=== PATIENT | male | born 1960 | race Caucasian/White ===

== ENCOUNTER 2025-05-07 12:32 | Outpatient (AMB) | payer OTHER, SELFPAY ==
[2025-05-07 12:49] VITALS: BMI 33.2
--- NOTE | 2025-05-07 12:49 | A.PHYSOV ---
Vital Signs 05/07/25 12:49 Height 5 ft 7 in Weight 212 lb BMI 33.2 Intake Visit Reasons: EMG followup Intake Note: Patient is here for his EMG review. Associate Material Handler Required: No Allergies No Known Allergies Allergy (Verified 05/07/25 12:50) HPI Comments Details: History of Present Illness The patient is a 64 year old male presenting for follow-up of moderate bilateral carpal tunnel syndrome and new onset low back pain. He has been retired for two weeks and reports that his hands feel better with less use, though numbness persists in the first four fingers of his right hand. A prior carpal tunnel injection provided short-term pain relief but did not resolve the numbness. He also notes that his right wrist has been locking up, which is very painful. His left thumb, previously treated with a cortisone injection for arthritis by another provider, is not currently bothering him. For the past two days, the patient has experienced low back pain, prompting him to remain mostly horizontal on a heating pad. The pain is located in the center of his back and radiates to the hips. His history is notable for a fall four years ago that resulted in a large gluteal hematoma, which took months to resolve and left him with altered sensation in his left buttock. 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 Pain Description - Hands: The patient reports constant numbness in the first four fingers of his right hand. - Wrist: The patient's right wrist intermittantly locks, causing severe pain. - Back: The patient describes central low back pain that radiates to both hips, accompanied by a feeling of stiffness. - Exacerbating factors: Back pain is worse when upright and walking. - Relieving factors: Hand discomfort is alleviated by rest since [facility]. - Back pain is relieved by lying down. Results - Tests and Diagnostics: A recent test confirmed moderate bilateral carpal tunnel syndrome. - Imaging: A past CAT scan performed for a kidney stone incidentally found a hemangioma in the back. - He previously had an x-ray of his left hand. [facility] Medical History (Updated 05/07/25 @ 13:56 by SAMUEL Witt) Kidney stones Surgical History H/O: knee surgery History of cholecystectomy H/O shoulder surgery Social History (Updated 05/07/25 @ 12:53 by Erica Elliott MA) Alcohol intake: current Alcohol intake frequency: holidays/special occasions only Patient Tobacco Use Status: Never used Tobacco Review of Systems Narrative Review of Systems - Musculoskeletal: Reports acute low back pain with stiffness and radiation to hips. - Reports right wrist locking with associated pain. - Reports hand discomfort is improved overall since retiring. - Denies current left thumb pain. - Neurological: Reports constant numbness in the first four fingers of the right hand. - Reports a history of altered sensation in the left buttock. - Denies pain radiating into his legs. Physical Exam Exam Exam: Physical Exam -cervical spine range of motion slightly limited at end range throughout. -full range of motion bilateral upper extremities. Equal grape grower strength bilaterally. No thenar atrophy. -positive Tinel test bilaterally. - Back: Palpation of the lower back reveals bilateral muscle spasm. - Musculoskeletal: Lumbar spine range of motion demonstrates discomfort with extension and stiffness with flexion, without radicular symptoms into the legs. - Neurological: Lower extremity sensation is intact and equal bilaterally. - Lower extremity motor strength is 5/5 with thigh flexion and leg extension. Vital Signs: BMI result Body Mass Index 33.2 Assessment & Plan Assessment & Plan (1) Carpal tunnel syndrome: Code(s): G56.00 - Carpal tunnel syndrome, unspecified upper limb Category: Medical Qualifiers: Laterality: bilateral Qualified Code(s): G56.03 - Carpal tunnel syndrome, bilateral upper limbs (2) Cervicalgia: Code(s): M54.2 - Cervicalgia Category: Medical (3) Lumbar radiculopathy: Code(s): M54.16 - Radiculopathy, lumbar region Category: Medical Plan Pain Management - Analgesia: For back pain, the patient uses pain patches and a heating pad. - He has a prescription for diclofenac but was advised he could switch to ibuprofen if it is more effective. - A prior carpal tunnel injection helped his pain but not his numbness. - Activities of Daily Living: Hand discomfort has improved since retiring from work two weeks ago. - His acute back pain has kept him mostly horizontal for the past two days and is worse with walking. Plan Patient was informed and verbally consented to the use of an ambient scribe for clinic note documentation during this visit. 1. Bilateral Carpal Tunnel Syndrome The patient has moderate bilateral carpal tunnel syndrome, with persistent numbness in his right hand despite some improvement in overall discomfort since mcfp. A prior injection provided only temporary pain relief without affecting the numbness, raising concern for potential permanent nerve damage. A referral will be placed for a consultation with Dr. Sy, a hand surgeon, to discuss further management options, including potential surgery. 2. Acute Low Back Pain The patient presents with acute onset low back pain from the past two days, which examination suggests is musculoskeletal in origin, likely a muscle spasm. Management will be conservative, allowing time for spontaneous improvement. He will continue using a heating pad and pain patches. He can stop taking diclofenac and use ibuprofen if it provides better relief. If the pain lingers or does not resolve, further evaluation with an X-ray will be considered. Discussion Notes I confirmed with the patient that his test results show moderate carpal tunnel syndrome in both hands. We discussed that while his pain has improved with rest and prior injections, the persistent numbness in his right hand is concerning and could lead to permanent nerve damage if left untreated. The patient agreed to a surgical consultation, and I will place a referral to Dr. Sy, a hand specialist he has seen before. Regarding his new low back pain, my examination suggests it is likely a muscle spasm. I advised a conservative approach, recommending he give it time, continue with the heating pad and pain patches, and use ibuprofen if needed. I informed him that if the pain does not resolve or lingers, we should then proceed with an x-ray for further evaluation. Patient Instructions - I will send a referral to Dr. Sy, the hand specialist, for a consultation regarding your carpal tunnel syndrome. - Please schedule an appointment with him to discuss your options. - For your back pain, continue to give it time to improve. - You may continue using your heating pad and pain patches. - You can stop taking the prescription anti-inflammatory (diclofenac) and take [id number] ibuprofen if that works better for your pain. - If your back pain does not get better or worsens, please contact the office for a follow-up visit. Orders: Referrals Orthopedics Referral G56.03 - Carpal tunnel syndrome, bilateral upper limbs Coding Level of Care Code Est Pt Level 4 (54401) Diagnoses Bilateral carpal tunnel syndrome G56.03 Laterality: bilateral Cervicalgia M54.2 Lumbar radiculopathy M54.16 Time Spent (min) 30 Comment 30 minutes reviewing the medical record and imaging, seeing the patient and documenting.
--- OUTSIDE RECORDS SUMMARY | 2025-05-07 14:22 | XMS_ITS | Clinical Summary ---
Author Organization [address] [facility] Address [address] [place] [address] Phone Care Team Providers Care Airborne Operations Manager Name Role Phone Geri Camarillo NP Primary Care Provider [phone] Allergies No known active allergies Medications cetirizine (ZyrTEC) 10 mg tablet Take 1 tablet (10 mg total) by mouth 1 (one) time each day. Active tamsulosin (FLOMAX) 0.4 mg 24 hr capsule Take 2 capsules (0.8 mg total) by mouth 1 (one) time each day. 03/05/2023 Active calcium carbonate-vitam in D3 1,000 mg-20 mcg (800 unit) tablet Take 1 tablet by mouth 1 (one) time each day. Active atorvastatin (LIPITOR) 20 mg tablet TAKE 1 TABLET BY MOUTH DAILY 90 tablet 1 11/25/2024 Active gabapentin (NEURONTIN) 300 mg capsule Take 1 capsule (300 mg total) by mouth 3 (three) times a day. 270 capsule 1 12/11/2024 Active pantoprazole (PROTONIX) 40 mg EC tablet Take 1 tablet (40 mg total) by mouth 1 (one) time each day. 90 tablet 12/11/2024 Active sertraline (ZOLOFT) 50 mg tablet TAKE 1 TABLET(50 MG) BY MOUTH 1 TIME EACH DAY 90 tablet 1 02/05/2025 Active amLODIPine (NORVASC) 5 mg tablet TAKE 1 TABLET(5 MG) BY MOUTH TWICE DAILY 180 tablet 1 02/05/2025 Active meloxicam (MOBIC) 15 mg tablet TAKE 1 TABLET(15 MG) BY MOUTH 1 TIME EACH DAY 30 tablet 2 03/11/2025 Active Active Problems Problem Noted Date Diagnosed Date Cervical spondylosis with radiculopathy 03/20/20 Overview (01/17/2024): Last Assessment & Plan: Mr. Lara describes many years of neck pain, periscapular symptoms, shoulder pain into both arms. He had recent physical therapy but this did not really include cervical traction. His MRI of the cervical spine from [facility] on March 07 revealed degenerative changes most significant at C5-6 and C6-7. His upper extremity symptoms do not perfectly match the dermatomal patterns suggested by his MRI, but there are quite a few symptoms that are consistent with the MRI findings. We talked about obtaining an EMG and nerve conduction study to better cross reference his symptoms, but at this point I think we are going to try a Medrol Dosepak and physical therapy with cervical traction. We talked about acupuncture as another reasonable conservative modality. He knows not to take any NSAIDs while he is on the steroids but that he can start them when he finishes the steroids. He is on gabapentin and we discussed side effects and dose effect. Regarding his right shoulder symptoms, I encouraged him to speak to his primary care provider about getting a referral to orthopedics. He does seem to have significant right shoulder pain whenever he tries to reach behind his back from above or below. He will return to us in about 6 weeks for repeat evaluation or sooner if things are getting worse. Benign prostatic hyperplasia without lower urinary tract symptoms 08/22/2022 Dysthymia 08/22/2022 Mixed hyperlipidemia 08/22/2022 Primary hypertension 08/22/2022 Encounters Date Type Department Care Team Description 03/03/2025 6:43 PM EDT - 03/03/2025 11:59 PM EDT Hospital Encounter [facility] MRI [address] [place] [address] Radiculopathy, cervical region Discharge Disposition: Home or Self Care from Last 3 Months Immunizations Immunization Administration Dates Next Due Influenza Quadravalent, MDCK , 0.5ml, preservative free (Flucelvax) 6mo and older 03/05/2023 Influenza trivalent, MDCK, 0 .5mL, preservative free (Flucelvax) 6mo and older 05/29/2024 Influenza trivalent, with pr eservative (Fluzone; Afluria) 6mo and older 04/29/2022 Tdap Tetanus diptheria acell ular pertussis (Boostrix; Adacel) 7yo and older 12/18/2020 Surgical History Surgery Date Site/Laterality Comments CHOLECYSTECTOMY PROCEDURE: HISTORICAL CHOLECYSTECTOMY KNEE SURGERY Left PROCEDURE: HISTORICAL KNEE SURGERY LITHOTRIPSY 07/14/2023 PROCEDURE: HISTORICAL LITHOTRIPSY SHOULDER SURGERY 07/22/2023 Right PROCEDURE: HISTORICAL SHOULDER SURGERY Medical History Medical History Date Comments Allergic rhinitis due to pollen DX:Allergic rhinitis due to pollen Back ache DX:Back ache GERD (gastroesophageal reflux disease) DX:GERD (gastroesophageal reflux disease) PUD (peptic ulcer disease) DX:PU D (peptic ulcer disease) Macrocytosis DX:Macrocytosis Renal stone DX:Renal stone Family History Medical History Relation Name Comments Hypertension Brother Diabetes Maternal Grandfather Alzheimer's disease Maternal Grandmother Alzheimer's disease Mother Hypertension Mother Stroke Mother Relation Name Status Comments Brother Maternal Grandfather Maternal Grandmother Mother Social History Tobacco Use Types Packs/Day Years Used Date Smoking Tobacco: Former Cigarettes Smokeless Tobacco: Never Tobacco Cessation:Counseling Given: Not Answered Alcohol Use Standard Drinks/Week Comments Not Currently 0 (1 standard drink = 0.6 oz pur e alcohol) Sex and Gender Information Value Date Recorded Sex Assigned at Not on file Legal Sex Male 2:54 AM EST Gender Identity Not on file Sexual Orientation Not on file Last Filed Vital Signs Vital Sign Reading Time Taken Comments Blood Pressure 129/75 12/11/2024 3:39 PM EDT Pulse 77 12/11/2024 3:39 PM EDT Temperature 36.7 C (98.1 F) 07/03/2024 9:02 AM EST Respiratory Rate - - Oxygen Saturation 97% 07/03/2024 9:02 AM EST Inhaled Oxygen Concentration - - Weight 94.8 kg (209 lb) 12/11/2024 3:39 PM EDT Height 170.2 cm (5' 7 ) 12/11/2024 3:39 PM EDT Body Mass Index 32.73 12/11/2024 3:39 PM EDT Plan of Treatment Upcoming Encounters Date Type Department Care Team (Late st Contact Info) Description 05/31/2025 9:00 AM EST Office Visit Internal Medicine - [facility] [address] [address] [facility] [place] [phone] Geri Camarillo, RONNIE [address] [id number] Health Maintenance Due Date Last Done Comments Pneumococcal Vaccine: 50+ Years (1 of 1 - PCV) 09/14/2011 Zoster Vaccines (1 of 2) 09/14/2011 Depression Screening 05/20/2024 Influenza Vaccine (#1) 2025 , 03/05/2023, 04/29/2022, Additional history exists Social Influencers of Health Screening 05/29/2025 05/29/2024 Hypertension/CHF/CAD Annual BMP Blood Test 12/11/2025 12/11/2024, 05/29/2024, 05/14/2023 Cholesterol Screening (Lipid Panel) 12/11/2029 12/11/2024, 05/29/2024, 09/25/2023, Additional history exists DTaP,Tdap,and Td Vaccines (2 - Td or Tdap) 12/18/2030 12/18/2020 Colorectal Cancer Screening: Colonoscopy 05/17/2032 05/17/2022 RSV Immunization Adult Patients (1 - 1-dose 75+ series) 2036 COVID-19 Vaccine Discontinued 06/03/2021, 08/20/2020 Hepatitis C Screening Completed 08/22/2022 HIB Vaccines Aged Out No longer eligi ble based on patient's age to complete this topic HIV Screening Discontinued HPV Vaccines Aged Out No longer eligi ble based on patient's age to complete this topic Hepatitis A Vaccines Aged Out No long er eligible based on patient's age to complete this topic Hepatitis B Vaccines Aged Out No long er eligible based on patient's age to complete this topic IPV Vaccines Aged Out No longer eligi ble based on patient's age to complete this topic MMR Vaccines Aged Out No longer eligi ble based on patient's age to complete this topic Meningococcal ACWY Vaccine Aged Out N o longer eligible based on patient's age to complete this topic Meningococcal B Vaccine Aged Out No l onger eligible based on patient's age to complete this topic RSV Immunization Patients Under 20 months Aged Out No longer eligible based on patient's age to complete this topic Varicella Vaccines Aged Out No longer eligible based on patient's age to complete this topic Procedures Procedure Name Priority Date/Time Associated Diagnosis Comments MR CERVICAL SPINE WO CONTRAST Routine 03/03/2025 7:34 PM EDT Radiculopathy, cervical region BASIC METABOLIC PANEL Routine 12/11/2024 4:01 PM EDT Primary hypertension LIPID PANEL WITH REFLEX TO DIRECT LDL Routine 12/11/2024 4:01 PM EDT Mixed hyperlipidemia HEPATITIS C SCREENING Routine 08/22/2022 COLONOSCOPY Routine 05/17/2022 from Last 3 Months or Most Recently Relevant to Health Maintenance Results * MR Cervical Spine wo Contrast (03/03/2025 7:34 PM EDT) Anatomical Region Laterality Modality C-spine, Spine Magnetic Resonan ce 03/09/2025 2:33 PM EDT Impressions 03/09/2025 2:42 PM EDT Degenerative changes throughout the cervical spine, most pronounced at C5-6 and C6-7. No high-grade spinal canal stenosis, mass effect upon the cord, or cord signal abnormality. Foraminal stenoses most pronounced on the right at C5-6 as well as on the left at C6-7 and C7-T1. Advanced C7-T1 facet arthritis bilaterally. -------- FINAL REPORT -------- Dictated By: SUZETTE CARPENTER Dictated Date: 03/09/2025 14:33 ET Assigned Physician: SUZETTE CARPENTER Reviewed and Electronically Signed By: SUZETTE CARPENTER Signed Date: 03/09/2025 14:42 ET Workstation ID: [id number] Transcribed By: Self Edit Transcribed Date: 03/09/2025 14:33 ET Narrative 03/09/2025 2:42 PM EDT PROCEDURE: Cervical spine MRI INDICATION: Radiculopathy TECHNIQUE: Multiplanar, multisequence MRI of the Cervical spine Without contrast. COMPARISON: 10/06/2012 MRI FINDINGS: Straightening of the normal upper cervical lordosis with minimal anterolisthesis at C7-T1 related to degenerative facet arthropathy. No fracture or suspicious marrow replacing lesion. Degenerative loss of normal disc height and signal throughout the cervical spine, most pronounced at C5-6 and C6-7, with associated degenerative endplate spurring. Advanced cervical facet arthritis at C7-T1 bilaterally. Cervical cord is normal in signal and morphology. No epidural collection or mass is seen within the spinal canal. Paraspinal muscles are normal. Foramen magnum is normal. Findings by level: C2-C3: No focal disc protrusion, foraminal stenosis, or spinal canal stenosis. C3-C4: No focal disc protrusion, foraminal stenosis, or spinal canal stenosis. C4-C5: Left uncovertebral spur resulting in mild left and no right foraminal stenosis. No spinal canal stenosis. C5-C6: Posterior disc osteophyte complex with bilateral uncovertebral spurring and facet arthropathy resulting in moderate right and mild left foraminal stenosis. Mild spinal canal stenosis. C6-C7: Left greater than right uncovertebral spurring and posterior disc osteophyte complex resulting in moderate left and mild right proximal stenosis. Mild spinal canal stenosis. C7-T1: Left greater than right facet arthropathy and uncovertebral spurring resulting in moderate left and no right foraminal stenosis. No spinal canal stenosis. Procedure Note Suzette Carpenter MD - 03/09/2025 PROCEDURE: Cervical spine MRI INDICATION: Radiculopathy TECHNIQUE: Multiplanar, multisequence MRI of the Cervical spine Withoutcontrast. COMPARISON: 10/06/2012 MRI FINDINGS: Straightening of the normal upper cervical lordosis with minimalanterolisthesis at C7-T1 related to degenerative facet arthropathy. No fracture or suspicious marrow replacing lesion. Degenerative loss of normal disc height and signal throughout the cervicalspine, most pronounced at C5-6 and C6-7, with associated degenerativeendplate spurring. Advanced cervical facet arthritis at C7-T1 bilaterally. Cervical cord is normal in signal and morphology. No epidural collectionor mass is seen within the spinal canal. Paraspinal muscles are normal. Foramen magnum is normal. Findings by level: C2-C3: No focal disc protrusion, foraminal stenosis, or spinal canalstenosis. C3-C4: No focal disc protrusion, foraminal stenosis, or spinal canalstenosis. C4-C5: Left uncovertebral spur resulting in mild left and no rightforaminal stenosis. No spinal canal stenosis. C5-C6: Posterior disc osteophyte complex with bilateral uncovertebralspurring and facet arthropathy resulting in moderate right and mild leftforaminal stenosis. Mild spinal canal stenosis. C6-C7: Left greater than right uncovertebral spurring and posterior discosteophyte complex resulting in moderate left and mild right proximalstenosis. Mild spinal canal stenosis. C7-T1: Left greater than right facet arthropathy and uncovertebralspurring resulting in moderate left and no right foraminal stenosis. Nospinal canal stenosis. IMPRESSION: Degenerative changes throughout the cervical spine, most pronounced atC5-6 and C6-7. No high-grade spinal canal stenosis, mass effect upon thecord, or cord signal abnormality. Foraminal stenoses most pronounced onthe right at C5-6 as well as on the left at C6-7 and C7-T1. Advanced C7-T1 facet arthritis bilaterally. -------- FINAL REPORT -------- Dictated By: SUZETTE CARPENTER Dictated Date: 03/09/2025 14:33 ET Assigned Physician: SUZETTE CARPENTER Reviewed and Electronically Signed By: SUZETTE CARPENTER Signed Date: 03/09/2025 14:42 ET Workstation ID: [id number] Transcribed By: Self Edit Transcribed Date: 03/09/2025 14:33 ET Tyshawn BAKER IMG MRI PROCEDURES Final Resul t * Lipid panel with reflex to direct LDL (12/11/2024 4:01 PM EDT) Cholesterol 143 0 - 200 mg/dL LAB CHEMISTRY METHOD 12/11/2024 7:03 PM EDT [facility] Triglycerides 149 0 - 150 mg/dL LAB CHEMISTRY METHOD 12/11/2024 7:03 PM EDT [facility] HDL 42 >=40 mg/dL LAB CHEMISTRY METHOD 12/11/2024 7:03 PM EDT [facility] LDL Calculated 71 0 - 100 mg/dL LAB CHEMISTRY METHOD 12/11/2024 7:03 PM EDT [facility] VLDL Cholesterol Eliud 29.8 mg/dL LAB CHEMISTRY METHOD 12/11/2024 7:03 PM T [facility] Non HDL Chol. (LDL+VLDL) 101 <145 mg/dL LAB CHEMISTRY METHOD 12/11/2024 7:03 PM [facility] Chol/HDL Ratio 3.4 0.0 - 4.4 LAB CHEMISTRY METHOD 12/11/2024 7:03 PM T [facility] Blood Venous blood specimen / Unknown Venipuncture / Unknown 12/11/2024 4:01 PM EDT 12/11/2024 4:01 PM EDT us Geri Camarillo NP LAB BLOOD ORDERABLES Final Resu lt [facility] [address] [place] [address], * (ABNORMAL) Basic metabolic panel (12/11/2024 4:01 PM EDT) Sodium 138 133 - 145 mmol/L LAB CHEMISTRY METHOD 12/11/2024 7:00 PM [facility] Potassium 3.7 3.5 - 5.5 mmol/L LAB CHEMISTRY METHOD 12/11/2024 7:00 PM [facility] Chloride 107 96 - 110 mmol/L LAB CHEMISTRY METHOD 12/11/2024 7:00 PM [facility] CO2 26 21 - 32 mmol/L LAB CHEMISTRY METHOD 12/11/2024 7:00 PM [facility] Anion Gap 5 3 - 11 LAB CHEMISTRY METHOD 12/11/2024 7:00 PM [facility] Glucose 94 70 - 100 mg/dL LAB CHEMISTRY METHOD 12/11/2024 7:00 PM [facility] BUN 28(H) 5 - 25 mg/dL LAB CHEMISTRY METHOD 12/11/2024 7:00 PM EDT [facility] Creatinine 1.00 0.70 - 1.30 mg/dL LAB CHEMISTRY METHOD 12/11/2024 7:00 PM EDT [facility] eGFR 85 >=60 mL/min/1. 73m2 LAB CHEMISTRY METHOD 12/11/2024 7:00 PM EDT [facility] Comment:Calculation based on the Chronic Kidney Disease Epidemiology Collaboration (CKD-EPI) equation refit without adjustment for race. BUN/Creatinine Ratio 28.0 LAB CHEMISTRY METHOD 12/11/2024 7:00 PM EDT [facility] Calcium 9.7 8.5 - 10.5 mg/dL LAB CHEMISTRY METHOD 12/11/2024 7:00 PM EDT [facility] Blood Venous blood specimen / Unknown Venipuncture / Unknown 12/11/2024 4:01 PM EDT 12/11/2024 4:01 PM EDT Geri Camarillo SENIOR EMBEDDED SOFTWARE ENGINEER LAB BLOOD ORDERABLES Final Resu lt [facility] [address] [place] [address], * Hepatitis C Screening (08/22/2022) Hepatitis C Screening negative Historical Provider HEALTH MAINTENANCE Final Result * Colonoscopy (05/17/2022) Colonoscopy no interpretation , abstracted Anatomical Region Laterality Modality Other Historical Provider HEALTH MAINTENANCE Final Result from Last 3 Months or Most Recently Relevant to Health Maintenance Insurance [facility] Care Teams Airborne Operations Manager Relationship Specialty Start Date End Date Geri Camarillo NP [address] [place] [id number] PCP - General 06/19/22
--- OUTSIDE RECORDS SUMMARY | 2025-05-07 14:22 | XMS_ITS | Data Portability ---
Author Organization [facility], [facility] Address [address] [place] [address] Care Team Providers Care Apprentice/Lineman Name Role Phone MONICA CAMPOS Primary Care Provider Assessment Encounter Date Assessment Date Assessment LastModified by Organization Details LastModified Time 01/16/2024 01/16/2024 A: Pt progressing well c strengthening, challenged appropriately throughout. Active elevation mechanics are improving. Endurance increasing. P: cont to tolerance, progress per protocol. Pt to cont for x1/wk for 4-5wks. [email or web address] Not available 01/16/2024 07:04:12 01/22/2024 01/22/2024 A: Pt progressing well c strengthening, challenged appropriately throughout. Active elevation mechanics are improving. Endurance increasing. P: cont to tolerance, progress per protocol. Pt to cont for x1/wk for 4-5wks. [email or web address] Not available 01/21/2024 19:52:07 01/30/2024 01/30/2024 A: Pt progressing well c strengthening, challenged appropriately throughout. Active elevation mechanics are improving. Passive flex improved. Fatigued post rx. P: cont to tolerance, progress per protocol. [email or web address] Not available 01/30/2024 18:38:43 02/13/2024 02/13/2024 A: Pt progressing well c strengthening, challenged appropriately throughout. Active elevation mechanics are improving. Passive flex improved. Fatigued post rx. P: pt dc with HEP [email or web address] Not available 02/13/2024 20:48:05 Plan of Treatment Reminders Order Date Submit Date Provider Last Modified By Organization Details Last Modified Time Details Appointments None record ed. Lab None record ed. Referral None record ed. Procedures None record ed. Surgeries None record ed. Imaging None record ed. Medication Orders None record ed. Patient TargetsNo targets recorded. Patient InstructionsNo instructions recorded. Reason for Referral None Reported. Results Created Date Observation Date Name Description Value Unit Range Abnormal Flag Note LastModifiedBy Organization Detail LastModifiedTime 01/18/20 24 06/19/2023 imagi ng/di agnos tic resul t No observ ation record ed. [email or web address] Not Available 12/20 04:21:18 Result Notes None recorded. Problems Name Problem SNOMED Code Status Onset Date Resolution Date Notes Provider Name and Address Organization Details Recorded Time Full thickness rotator cuff tear 779601270 Active 024 Radha Desouza, AUTOMOTIVE DETAILER [address], [place], [address], [facility] 4 08:42:58 Full thickness rotator cuff tear 904113076 Active 024 BARBER ANDRADE [facility] 4 10:54:59 Problem Notes None recorded. Procedures Surgical History Date Name Laterality Status Provider Name and Address Organization Details Recorded Time 4 62854 Therapeutic Exercise (1:1) completed Casey Blackmon, PT [address], [place], [address], [facility] 02/13/2024 06:28:42 4 49904: Manual therapy completed Casey Blackmon, PT [address], [place], [address], [facility] 02/13/2024 06:28:42 4 67277 Therapeutic Exercise (1:1) cancelled Casey Blackmon, PT [address], [place], [address], [facility] 02/03/2024 15:30:18 4 32808: Manual therapy cancelled Casey Blackmon, PT [address], [place], [address], [facility] 02/03/2024 15:30:18 4 26506 Therapeutic Exercise (1:1) completed Radha Desouza AUTOMOTIVE DETAILER [address], [place], [address], [facility] 01/30/2024 18:48:45 4 70904: Manual therapy completed Radha Desouza AUTOMOTIVE DETAILER [address], [place], [address], [facility] 01/30/2024 18:48:38 4 36444 Therapeutic Exercise (1:1) completed Casey Blackmon PT [address], [place], [address], [facility] 01/21/2024 19:52:16 4 23716: Manual therapy completed Casey Blackmon PT [address], [place], [address], [facility] 01/21/2024 19:52:16 4 59369 Therapeutic Exercise (1:1) completed Casey Blackmon PT [address], [place], [address], [facility] 01/16/2024 07:04:18 4 06777: Manual therapy completed Casey Blackmon PT [address], [place], [address], [facility] 01/16/2024 07:04:18 4 57688 Therapeutic Exercise (1:1) completed Radha Desouza, AUTOMOTIVE DETAILER [address], [place], [address], [facility] 01/14/2024 18:20:23 4 87503: Manual therapy completed Radha Desouza, AUTOMOTIVE DETAILER [address], [place], [address], [facility] 01/14/2024 18:20:26 4 69639 Therapeutic Exercise (1:1) completed Casey Blackmon, PT [address], [place], [address], [facility] 01/09/2024 20:47:51 4 81304: Manual therapy completed Casey Blackmon, PT [address], [place], [address], [facility] 01/09/2024 20:47:51 4 38643 Therapeutic Exercise (1:1) completed Casey Blackmon, PT [address], [place], [address], [facility] 01/08/2024 07:41:00 4 86381: Manual therapy completed Casey Blackmon, PT [address], [place], [address], [facility] 01/09/2024 06:05:03 4 68526 Therapeutic Exercise (1:1) completed Radha Desouza, AUTOMOTIVE DETAILER [address], [place], [address], [facility] 01/02/2024 19:06:33 4 81087: Hot or Cold Pack completed Radha Desouza AUTOMOTIVE DETAILER [address], [place], [address], [facility] 01/02/2024 19:06:33 4 50861: Manual therapy completed Radha Desouza, AUTOMOTIVE DETAILER [address], [place], [address], [facility] 01/02/2024 19:06:33 4 59966 Therapeutic Exercise (1:1) completed Radha Desouza, AUTOMOTIVE DETAILER [address], [place], [address], [facility] 12/30/2023 08:59:01 4 99888: Hot or Cold Pack completed Radha Desouza AUTOMOTIVE DETAILER [address], [place], [address], [facility] 12/30/2023 08:59:01 4 28888: Manual therapy completed Radha Desouza PTA [address], [place], [address], [facility] 12/30/2023 08:59:01 4 82551 Therapeutic Exercise (1:1) completed Radha Desouza PTA [address], [place], [address], [facility] 12/25/2023 12:43:15 4 80034: Hot or Cold Pack completed Radha Desouza PTA [address], [place], [address], [facility] 12/25/2023 12:43:05 4 36091: Manual therapy completed Radha Desouza PTA [address], [place], [address], [facility] 12/24/2023 10:46:50 4 13909 Therapeutic Exercise (1:1) completed Casey Blackmon PT [address], [place], [address], [facility] 12/22/2023 17:20:47 4 73000: Hot or Cold Pack completed Casey Blackmon PT [address], [place], [address], [facility] 12/22/2023 17:20:47 4 66464: Manual therapy completed Casey Blackmon PT [address], [place], [address], [facility] 12/22/2023 17:20:47 4 77275 Therapeutic Exercise (1:1) completed Radha Desouza PTA [address], [place], [address], [facility] 12/19/2023 15:43:44 4 53418: Hot or Cold Pack completed Radha Desouza, AUTOMOTIVE DETAILER [address], [place], [address], [facility] 12/19/2023 18:55:42 4 37148: Manual therapy completed Radha Desouza, AUTOMOTIVE DETAILER [address], [place], [address], [facility] 12/19/2023 18:55:58 4 24991 Therapeutic Exercise (1:1) completed Casey Blackmon, PT [address], [place], [address], [facility] 12/17/2023 09:35:39 4 85417: Manual therapy completed Casey Blackmon, PT [address], [place], [address], [facility] 12/17/2023 09:35:39 4 34817 Therapeutic Exercise (1:1) completed Radha Desouza, AUTOMOTIVE DETAILER [address], [place], [address], [facility] 12/12/2023 11:13:56 4 04660: Manual therapy completed Radha Desouza, AUTOMOTIVE DETAILER [address], [place], [address], [facility] 12/12/2023 11:13:43 4 84973 Therapeutic Exercise (1:1) completed Radha Desouza, AUTOMOTIVE DETAILER [address], [place], [address], [facility] 12/09/2023 13:06:03 4 53865: Manual therapy completed Radha Desouza, AUTOMOTIVE DETAILER [address], [place], [address], [facility] 12/09/2023 13:06:03 4 19469 Therapeutic Exercise (1:1) completed Radha Desouza, AUTOMOTIVE DETAILER [address], [place], [address], [facility] 11/27/2023 12:56:43 4 59666: Manual therapy completed Radha Desouza, AUTOMOTIVE DETAILER [address], [place], [address], [facility] 11/26/2023 11:17:52 4 62047 Therapeutic Exercise (1:1) completed Radha Desouza, AUTOMOTIVE DETAILER [address], [place], [address], [facility] 11/22/2023 13:16:27 4 31482: Manual therapy completed Radha Desouza, AUTOMOTIVE DETAILER [address], [place], [address], [facility] 11/22/2023 13:16:27 4 52959 Therapeutic Exercise (1:1) completed Radha Desouza, AUTOMOTIVE DETAILER [address], [place], [address], [facility] 11/19/2023 17:15:55 4 67132: Manual therapy completed Radha Desouza AUTOMOTIVE DETAILER [address], [place], [address], [facility] 11/19/2023 17:15:55 4 06276 Therapeutic Exercise (1:1) completed Radha Desouza, AUTOMOTIVE DETAILER [address], [place], [address], [facility] 11/19/2023 13:11:58 4 02014: Manual therapy completed Radha Desouza AUTOMOTIVE DETAILER [address], [place], [address], [facility] 11/19/2023 13:13:15 4 19523 Therapeutic Exercise (1:1) completed Casey Blackmon, PT [address], [place], [address], [facility] 11/14/2023 17:46:58 4 17445: Manual therapy completed Casey Blackmon, PT [address], [place], [address], [facility] 11/14/2023 17:46:58 4 88973 Therapeutic Exercise (1:1) completed Casey Blackmon, PT [address], [place], [address], [facility] 11/12/2023 07:54:17 4 90379: Manual therapy completed Casey Blackmon, PT [address], [place], [address], [facility] 11/12/2023 07:54:17 4 90925 Therapeutic Exercise (1:1) completed Radha Desouza, AUTOMOTIVE DETAILER [address], [place], [address], [facility] 11/06/2023 10:25:36 4 96547: Hot or Cold Pack completed Radha Desouza AUTOMOTIVE DETAILER [address], [place], [address], [facility] 11/06/2023 10:28:58 4 06650: Manual therapy completed Radha Desouza, AUTOMOTIVE DETAILER [address], [place], [address], [facility] 11/06/2023 10:25:34 4 16239 Therapeutic Exercise (1:1) completed Radha Desouza, AUTOMOTIVE DETAILER [address], [place], [address], [facility] 11/04/2023 12:12:24 4 30819: Hot or Cold Pack completed Radha Desouza AUTOMOTIVE DETAILER [address], [place], [address], [facility] 11/01/2023 13:10:32 4 20432: Manual therapy completed Radha Desouza, AUTOMOTIVE DETAILER [address], [place], [address], [facility] 11/04/2023 12:02:30 4 14386 Therapeutic Exercise (1:1) completed Radha Desouza, AUTOMOTIVE DETAILER [address], [place], [address], [facility] 10/28/2023 15:01:03 4 94642: Hot or Cold Pack completed Radha Desouza, AUTOMOTIVE DETAILER [address], [place], [address], [facility] 10/30/2023 11:56:56 4 84595: Manual therapy completed Radha Desouza, AUTOMOTIVE DETAILER [address], [place], [address], [facility] 10/30/2023 11:54:34 4 01843 Therapeutic Exercise (1:1) completed Casey Blackmon, PT [address], [place], [address], [facility] 10/28/2023 11:00:16 4 61778: Manual therapy completed Csaey Blackmon, PT [address], [place], [address], [facility] 10/28/2023 11:00:20 4 02041 Therapeutic Exercise (1:1) completed Radha Desouza, AUTOMOTIVE DETAILER [address], [place], [address], [facility] 10/24/2023 13:24:25 4 19875: Hot or Cold Pack completed Radha Desouza, AUTOMOTIVE DETAILER [address], [place], [address], [facility] 10/22/2023 18:06:15 4 85789: Manual therapy completed Radha Desouza, AUTOMOTIVE DETAILER [address], [place], [address], [facility] 10/22/2023 18:06:15 4 60745 Therapeutic Exercise (1:1) completed Casey Blackmon PT [address], [place], [address], [facility] 10/20/2023 14:41:11 4 98421: Hot or Cold Pack completed Casey Blackmon PT [address], [place], [address], [facility] 10/20/2023 14:41:11 4 19193: Manual therapy completed Casey Blackmon PT [address], [place], [address], [facility] 10/20/2023 14:41:11 4 72202 Therapeutic Exercise (1:1) completed Radha Desouza AUTOMOTIVE DETAILER [address], [place], [address], [facility] 10/16/2023 17:04:57 4 80669: Hot or Cold Pack completed Radha Desouza AUTOMOTIVE DETAILER [address], [place], [address], [facility] 10/16/2023 17:04:57 4 44556: Manual therapy completed Radha Desouza PTA [address], [place], [address], [facility] 10/17/2023 12:45:05 4 05846 Therapeutic Exercise (1:1) completed Casey Blackmon PT [address], [place], [address], [facility] 10/14/2023 17:44:04 4 69993: Hot or Cold Pack completed Casey Blackmon PT [address], [place], [address], [facility] 10/14/2023 17:44:04 4 67397: Manual therapy completed Casey Blackmon PT [address] [facility], [place], [address], [facility] 10/14/2023 17:44:04 4 43862 Therapeutic Exercise (1:1) completed Radha Desouza PTA [address], [place], [address], [facility] 10/10/2023 13:28:58 4 29855: Hot or Cold Pack completed Radha Desouza PTA [address], [place], [address], [facility] 10/09/2023 08:47:31 4 45008: Manual therapy completed Radha Desouza PTA [address], [place], [address], [facility] 10/10/2023 13:28:22 4 49159 Therapeutic Exercise (1:1) completed Radha Desouza PTA [address], [place], [address], [facility] 10/07/2023 13:47:28 4 36705: Hot or Cold Pack completed Radha Desouza PTA [address], [place], [address], [facility] 10/04/2023 14:51:34 4 83973: Manual therapy completed Radha Desouza AUTOMOTIVE DETAILER [address], [place], [address], [facility] 10/07/2023 13:46:18 Large Joint Aspiration L/R completed Torres Christianson PA-C [address], [place], [address], [facility] 10/04/2023 14:38:04 4 21913 Therapeutic Exercise (1:1) completed Radha Carolinananjum, AUTOMOTIVE DETAILER [address], [place], [address], [facility] 10/03/2023 13:36:32 4 41819: Hot or Cold Pack completed Radha Lyly, AUTOMOTIVE DETAILER [address], [place], [address], [facility] 10/02/2023 16:54:15 4 63245: Manual therapy completed Radha Carolinananjum, AUTOMOTIVE DETAILER [address], [place], [address], [facility] 10/02/2023 16:54:15 4 55608 Therapeutic Exercise (1:1) completed Radha Lyly, AUTOMOTIVE DETAILER [address], [place], [address], [facility] 09/30/2023 11:43:21 4 64116: Hot or Cold Pack completed Radha Lyly, AUTOMOTIVE DETAILER [address], [place], [address], [facility] 10/01/2023 13:20:42 4 41065: Manual therapy completed Radha Desouza, AUTOMOTIVE DETAILER [address], [place], [address], [facility] 10/01/2023 13:20:37 4 45789 Therapeutic Exercise (1:1) completed Radha Lyly, AUTOMOTIVE DETAILER [address], [place], [address], [facility] 09/25/2023 15:30:44 4 97947: Hot or Cold Pack completed Radha Lyly, AUTOMOTIVE DETAILER [address], [place], [address], [facility] 09/26/2023 11:40:42 4 42987: Manual therapy completed Radha Lyly, AUTOMOTIVE DETAILER [address], [place], [address], [facility] 09/25/2023 15:30:44 4 46447 Therapeutic Exercise (1:1) completed Casey Blackmon, PT [address], [place], [address], [facility] 09/24/2023 09:00:15 4 73900: Hot or Cold Pack completed Casey Blackmon, PT [address], [place], [address], [facility] 09/24/2023 09:00:15 4 61046: Manual therapy completed Casey Blackmon, PT [address], [place], [address], [facility] 09/24/2023 09:00:15 4 56150 Therapeutic Exercise (1:1) completed Radha Desouza AUTOMOTIVE DETAILER [address], [place], [address], [facility] 09/19/2023 17:05:07 4 73626: Hot or Cold Pack completed Radha Desouza AUTOMOTIVE DETAILER [address], [place], [address], [facility] 09/17/2023 18:36:14 4 07167: Manual therapy completed Radha Desouza AUTOMOTIVE DETAILER [address], [place], [address], [facility] 09/19/2023 17:05:10 4 26030 Therapeutic Exercise (1:1) completed Radah Desouza AUTOMOTIVE DETAILER [address], [place], [address], [facility] 09/17/2023 14:24:00 4 86028: Hot or Cold Pack completed Radha Desouza AUTOMOTIVE DETAILER [address], [place], [address], [facility] 09/16/2023 08:56:06 4 27455: Manual therapy completed Radha Desouza PTA [address], [place], [address], [facility] 09/17/2023 14:24:11 4 13499 Therapeutic Exercise (1:1) completed Radha Desouza PTA [address], [place], [address], [facility] 09/11/2023 08:37:21 4 89246: Hot or Cold Pack completed Radha Desouza PTA [address], [place], [address], [facility] 09/11/2023 08:37:21 4 96482: Manual therapy completed Radha Desouza PTA [address], [place], [address], [facility] 09/11/2023 08:37:21 4 05765 Therapeutic Exercise (1:1) completed Radha Desouza PTA [address], [place], [address], [facility] 09/10/2023 12:47:28 4 51384: Hot or Cold Pack completed Radha Desouza PTA [address], [place], [address], [facility] 09/10/2023 12:47:44 4 93909: Manual therapy completed Radha Desouza PTA [address], [place], [address], [facility] 09/06/2023 13:24:09 4 05716 Therapeutic Exercise (1:1) completed Casey Blackmon, PT [address], [place], [address], [facility] [facility] 09/05/2023 15:34:22 4 35624: Hot or Cold Pack completed Casey Blackmon, PT [address], [place], [address], [facility] 09/05/2023 08:44:36 4 44636: Manual therapy completed Casey Blackmon, PT [address], [place], [address], [facility] 09/05/2023 15:34:17 4 65109 Therapeutic Exercise (1:1) completed Radha Desouza, AUTOMOTIVE DETAILER [address], [place], [address], [facility] 09/03/2023 13:04:16 4 61998: Hot or Cold Pack completed Radha Desouza, AUTOMOTIVE DETAILER [address], [place], [address], [facility] 09/02/2023 08:35:04 4 58516: Manual therapy completed Radha Desouza, AUTOMOTIVE DETAILER [address], [place], [address], [facility] 09/03/2023 13:03:22 4 16694 Therapeutic Exercise (1:1) completed Radha Desouza, AUTOMOTIVE DETAILER [address], [place], [address], [facility] 08/29/2023 15:05:09 4 97732: Hot or Cold Pack completed Radha Desouza, AUTOMOTIVE DETAILER [address], [place], [address], [facility] 08/29/2023 15:05:09 4 64005: Manual therapy completed Radha Desouza, AUTOMOTIVE DETAILER [address], [place], [address], [facility] 08/30/2023 11:17:20 4 40688 Therapeutic Exercise (1:1) completed Radha Desouza, AUTOMOTIVE DETAILER [address], [place], [address], [facility] 08/27/2023 13:58:04 4 06977: Hot or Cold Pack completed Radha Desouza, AUTOMOTIVE DETAILER [address], [place], [address], [facility] 08/27/2023 12:14:47 4 49919: Manual therapy completed Radha Desouza, AUTOMOTIVE DETAILER [address], [place], [address], [facility] 08/27/2023 13:57:55 4 88651 Therapeutic Exercise (1:1) completed Casey Blackmon, PT [address], [place], [address], [facility] 08/20/2023 17:56:51 4 09118: Hot or Cold Pack completed Casey Blackmon, PT [address], [place], [address], [facility] 08/21/2023 14:04:36 4 87387: Manual therapy completed Casey Blackmon, PT [address], [place], [address], [facility] 08/21/2023 14:36:59 4 64959 Therapeutic Exercise (1:1) completed Casey Blackmon PT [address], [place], [address], [facility] 08/18/2023 17:17:09 4 92604: Low complexity PT Eval completed Casey Blackmon, PT [address], [place], [address], [facility] 08/18/2023 17:17:13 Imaging Results None recorded. Procedure Notes None recorded. Medical Equipment None Reported. Allergies No known drug allergies Medications Name Sig Start Date Stop Date Status Note LastModified by Organization Details LastModified Time atorvastati n 20 mg tablet TAKE 1 TABLET BY MOUTH DAILY active Not Available Not Available No t Available phenazopyri dine 200 mg tablet TAKE 1 TABLET BY MOUTH EVERY 8 HOURS NEEDED 08/01 completed Not Available Not Available Not Available amlodipine 5 mg tablet TAKE 1 TABLET BY MOUTH TWICE DAILY active Not Available Not Available No t Available sulfamethox azole 800 mg-trimetho prim 160 mg tablet TAKE 1 TABLET BY MOUTH TWICE DAILY 08/01 completed Not Available Not Available Not Available oxycodone-a cetaminophe n 5 mg-325 mg tablet TAKE 1 TABLET BY MOUTH EVERY 6 HOURS NEEDED 08/01 completed Not Available Not Available Not Available tamsulosin 0.4 mg capsule TAKE 1 CAPSULE BY MOUTH AT BEDTIME active Not Available Not Available No t Available pantoprazol e 40 mg tablet,shazia yed release TAKE 1 TABLET BY MOUTH DAILY active Not Available Not Available No t Available gabapentin 300 mg capsule TAKE 1 CAPSULE BY MOUTH THREE TIMES DAILY active Not Available Not Available No t Available sertraline 25 mg tablet TAKE 1 TABLET BY MOUTH EVERY DAY 08/01 completed Not Available Not Available Not Available methylpredn isolone 4 mg tablets in a dose pack FOLLOW PACKAGE DIRECTION S 08/01 completed Not Available Not Available Not Available sertraline 50 mg tablet TAKE 1 TABLET BY MOUTH DAILY active Not Available Not Available No t Available naproxen 500 mg tablet TAKE 1 TABLET BY MOUTH TWICE DAILY WITH MEALS 09/12 completed Not Available Not Available Not Available oxycodone 5 mg tablet TAKE 1 TABLET BY MOUTH EVERY 6 HOURS WITH MEALS FOR 7 DAYS 09/12 completed Not Available Not Available Not Available oxycodone HCl-oxycodo ne-ASA as directed 1-2 TABLETS EVERY [address] WHILE TAKING THIS MEDICATIO N 02/27 completed Statu s: 'Curr ent'; Not Available Not Available Not Available BinaxNOW COVID-19 Ag Self Test kit TEST DIRECTED TODAY 08/01 completed Not Available Not Available Not Available Vitals Date Recorded Body height Provider Name an d Address Organization Details Last Updated DateTime 02/28/2024 170.18 cm Irene Cox [place] - [facility] 02/28/2024 15:05:00 Social History None recorded. Functional Status None recorded. Mental Status None recorded. Family History Nothing Reported. Medical History No medical history recorded. Past Encounters Encounter ID Performer Location Encounter Start Date Encounter Closed Date Diagnosis/Indication Diagnosis SNOMED-CT Code Diagnosis ICD10 Code Diagnosis IMO Codes Diagnosis Note [id number] [facility] [address] [place] [address] 08/02/2023 08:29:55 08/02/2023 09:23:47 Full thickness rotator cuff tear 882311183 M75.732 [id number] Casey Blackmon, PT [facility] [address] [place] [address] 08/19/2023 08:29:21 08/19/2023 09:19:56 Full thickness rotator cuff tear 586178100 M75.679 [id number] Casey Blackmon, PT [facility] [address] [place] [address] 08/21/2023 13:57:40 08/21/2023 14:42:23 Full thickness rotator cuff tear 665568593 M75.341 [id number] Radha Desouza, AUTOMOTIVE DETAILER [facility] [address] [place] [address] 08/27/2023 11:56:46 08/27/2023 13:58:24 Full thickness rotator cuff tear 921376833 M75.207 [id number] Radha Desouza, AUTOMOTIVE DETAILER [facility] [address] [place] [address] 08/30/2023 10:23:56 08/30/2023 11:22:15 Full thickness rotator cuff tear 356821002 M75.901 [id number] Radha Desouza, AUTOMOTIVE DETAILER [facility] [address] [place] [address] 09/03/2023 11:52:02 09/03/2023 14:20:12 Full thickness rotator cuff tear 371085229 M75.476 [id number] Casey Blackmon, PT [facility] [address] [place] [address] 09/05/2023 14:57:42 09/05/2023 17:45:21 Full thickness rotator cuff tear 997651830 M75.821 [id number] Radha Desouza, AUTOMOTIVE DETAILER [facility] [address] [place] [address] 09/10/2023 12:00:47 09/10/2023 13:27:30 Full thickness rotator cuff tear 014088141 M75.959 [id number] Radha Desouza, AUTOMOTIVE DETAILER [facility] [address] [place] [address] 09/12/2023 12:00:05 09/12/2023 12:53:55 Full thickness rotator cuff tear 956057717 M75.492 [id number] Torres Christianson PA-C [facility] [address] [place] [address] 2023 09:58:36 2023 10:37:18 Full thickness rotator cuff tear 242163766 M75.886 [id number] Radha Desouza, AUTOMOTIVE DETAILER [facility] [address] [place] [address] 09/17/2023 11:59:25 09/17/2023 14:24:44 Full thickness rotator cuff tear 709015194 M75.823 [id number] Radha Desouza, AUTOMOTIVE DETAILER [facility] [address] [place] [address] 09/19/2023 11:25:47 09/19/2023 17:21:51 Full thickness rotator cuff tear 836645468 M75.484 [id number] Casey Blackmon, PT [facility] [address] [place] [address] 09/24/2023 11:57:27 09/24/2023 16:07:57 Full thickness rotator cuff tear [id number] M75.574 [id number] Radha Desouza, AUTOMOTIVE DETAILER [facility] [address] [place] [address] 09/26/2023 10:58:54 09/26/2023 12:06:11 Full thickness rotator cuff tear 242052064 M75.747 [id number] Radha Desouza, AUTOMOTIVE DETAILER [facility] [address] [place] [address] 10/01/2023 12:25:37 10/01/2023 13:22:46 Full thickness rotator cuff tear 913745784 M75.261 [id number] Radha Desouza, AUTOMOTIVE DETAILER [facility] [address] [place] [address] 10/03/2023 12:26:42 10/03/2023 13:37:32 Full thickness rotator cuff tear 673971577 M75.326 [id number] [facility] [address] [place] [address] 10/04/2023 13:57:16 10/29/2023 10:15:54 Bursitis of olecranon of right elbow 4960958402 15547 M70.21 [id number] Radha Desouza, AUTOMOTIVE DETAILER [facility] [address] [place] , [place] [address] 10/07/2023 12:59:52 10/07/2023 13:47:46 Full thickness rotator cuff tear 899374159 M75.415 [id number] Radha Desouza PTA [facility] [address] [place] , [place] [address] 10/10/2023 12:26:30 10/10/2023 13:34:54 Full thickness rotator cuff tear 243808341 M75.369 [id number] Casey Blackmon, PT [facility] [address] [place] [address] 10/15/2023 15:25:20 10/16/2023 09:28:24 Full thickness rotator cuff tear 155523972 M75.639 [id number] Radha Desouza, TALHA [facility] [address] [place] [address] 10/17/2023 11:57:39 10/17/2023 12:56:24 Full thickness rotator cuff tear 869232545 M75.772 [id number] Casey Blackmon, PT [facility] [address] [place] [address] 10/21/2023 10:55:26 10/22/2023 08:19:01 Full thickness rotator cuff tear 428275800 M75.156 [id number] MD [facility] [address] [place] [address] 10/23/2023 10:25:22 11/26/2023 15:36:33 Full thickness rotator cuff tear 004961650 M75.689 [id number] Radha Desouza, AUTOMOTIVE DETAILER [facility] [address] [place] [address] 10/24/2023 11:29:34 10/24/2023 13:26:55 Full thickness rotator cuff tear 628854337 M75.629 [id number] Casey Blackmon, PT [facility] [address] [place] [address] 10/28/2023 09:27:09 10/28/2023 15:29:33 Full thickness rotator cuff tear 333555800 M75.354 [id number] Radha Desouza, AUTOMOTIVE DETAILER [facility] [address] [place] [address] 10/30/2023 10:23:43 10/30/2023 11:57:32 Full thickness rotator cuff tear [id number] M75.499 [id number] Radha Desouza, AUTOMOTIVE DETAILER [facility] [address] [place] [place] [address] 11/04/2023 11:26:55 11/04/2023 13:01:59 Full thickness rotator cuff tear 275935339 M75.815 [id number] Radha Desouza, AUTOMOTIVE DETAILER [facility] [address] [place] [address] 11/06/2023 09:28:46 11/06/2023 10:30:47 Full thickness rotator cuff tear 773898980 M75.275 [id number] Casey Blackmon, PT [facility] [address] [place] [place] [address] 11/12/2023 12:30:22 11/12/2023 17:33:01 Full thickness rotator cuff tear 526829854 M75.749 [id number] Casey Blackmon, PT [facility] [address] [place] [address] 11/15/2023 09:56:24 11/15/2023 11:48:47 Full thickness rotator cuff tear 911242844 M75.278 [id number] Radha Desouza, AUTOMOTIVE DETAILER [facility] [address] [place] [place] [address] 11/19/2023 12:21:56 11/19/2023 13:13:54 Full thickness rotator cuff tear 791949997 M75.525 [id number] Radha Desouza, AUTOMOTIVE DETAILER [facility] [address] [facility] [place] [address] 11/22/2023 08:27:23 11/22/2023 09:28:37 Full thickness rotator cuff tear 349976877 M75.677 [id number] Radha Desouza, AUTOMOTIVE DETAILER [facility] [address] [facility] [place] [address] 11/25/2023 10:33:12 11/25/2023 12:27:55 Full thickness rotator cuff tear 439711825 M75.551 [id number] Radha Desouza, AUTOMOTIVE DETAILER [facility] [address] [facility] [place] [address] 11/27/2023 10:27:30 11/27/2023 12:57:46 Full thickness rotator cuff tear 696713456 M75.863 [id number] Radha Desouza, AUTOMOTIVE DETAILER [facility] [address] [facility] [place] [address] 12/10/2023 10:27:57 12/10/2023 13:11:19 Full thickness rotator cuff tear 367316322 M75.709 [id number] Radha Desouza, AUTOMOTIVE DETAILER [facility] [address] [facility] [place] [address] 12/12/2023 10:23:25 12/12/2023 11:24:50 Full thickness rotator cuff tear 546454861 M75.248 [id number] Casey Blackmon, PT [facility] [address] [place] [address] 12/17/2023 10:28:18 12/17/2023 20:14:22 Full thickness rotator cuff tear 184261577 M75.600 [id number] Radha Desouza, AUTOMOTIVE DETAILER [facility] [address] [facility] [place] [address] 12/19/2023 15:25:23 12/19/2023 18:57:16 Full thickness rotator cuff tear 908231802 M75.624 [id number] Casey Blackmon, PT [facility] [address] [place] [address] 12/23/2023 10:25:31 12/23/2023 12:49:39 Full thickness rotator cuff tear [id number] M75.490 [id number] Radha Desouza, AUTOMOTIVE DETAILER [facility] [address] [place] [address] 12/25/2023 10:27:15 12/25/2023 12:45:37 Full thickness rotator cuff tear [id number] M75.296 [id number] MD Raffaele [facility] [address] [place] [address] 12/26/2023 14:55:13 01/22/2024 14:32:31 Full thickness rotator cuff tear 423760161 M75.713 [id number] Radha Desouza, AUTOMOTIVE DETAILER [facility] [address] [place] [address] 12/31/2023 13:28:18 12/31/2023 14:28:31 Full thickness rotator cuff tear [id number] M75.332 [id number] Radha Desouza, AUTOMOTIVE DETAILER [facility] [address] [place] [address] 01/03/2024 13:59:10 01/03/2024 15:29:56 Full thickness rotator cuff tear 734146381 M75.957 [id number] Casey Blackmon, PT [facility] [address] [place] [address] 01/08/2024 13:30:02 01/10/2024 09:42:18 Full thickness rotator cuff tear 329827105 M75.703 [id number] Casey Blackmon, PT [facility] [address] [place] [address] 01/10/2024 12:57:07 01/11/2024 12:33:00 Full thickness rotator cuff tear 771908475 M75.342 [id number] Radha Desouza, AUTOMOTIVE DETAILER [facility] [address] [place] [address] 01/14/2024 16:24:42 01/14/2024 17:48:00 Full thickness rotator cuff tear 657442072 M75.696 [id number] Casey Blackmon, PT [facility] [address] [place] [address] 01/16/2024 11:54:24 01/16/2024 15:26:52 Full thickness rotator cuff tear 662471880 M75.143 [id number] Casey Blackmon, PT [facility] [address] [place] [address] 01/22/2024 09:26:08 01/23/2024 09:04:43 Full thickness rotator cuff tear 617644385 M75.371 [id number] Radha Desouza, AUTOMOTIVE DETAILER [facility] [address] [place] [address] 01/30/2024 17:52:24 01/30/2024 18:49:13 Full thickness rotator cuff tear 833172953 M75.382 [id number] Casey Blackmon, PT [facility] [address] [place] [address] 02/13/2024 16:54:56 02/14/2024 08:19:43 Full thickness rotator cuff tear 981685285 M75.033 [id number] [facility] [address] [place] [address] 02/28/2024 14:58:33 03/25/2024 10:49:59 Full thickness rotator cuff tear 485095560 M75.121 Health Concerns Section Related Observation LastModified by Organization Detai ls LastModified Time None Recorded Concern Status LastModified by Organization Details LastModified Time None Recorded Advance Directives Directive None Recorded Payers Insurance Date Sequence Insurance Name Policy Number Policy Song Covered Member ID Song Member ID Guarantor Name 12/24/2023 1 [facility] (POS) Helen G Peloquin [id number] Francois Restrepoojesse 03/25/2024 1 [facility] (PPO) Helen Peloquin [id number] Francois De La Paz Notes Date Note Type Note Provider Name and Address Organization Details Recorded Time 01/16/2024 text/html Pt reports ability to perform overhead activities is improving, but still has loss of strength when trying to lift heavy objects overhead.pt states 05/29 nur with 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 Casey Blackmon, PT [address], [place], [address], [facility] 01/16/2024 13:51:06 01/22/2024 text/html Pt reports ability to perform overhead activities is improving, but still has loss of strength when trying to lift heavy objects overhead.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 Feels fatigued and stiff coming in today, but denies pain. 5 min early Radha Desouza, AUTOMOTIVE DETAILER [address], [place], [address], [facility] 01/30/2024 18:49:09 02/13/2024 text/html Pt reports ability to perform overhead activities is improving, but still has loss of strength when trying to lift heavy objects overhead.Pt has returned to work 01/26. Feels fatigued and stiff coming in today, but denies pain.pt feels ready for dc with HEP 5 min early Casey Blackmon, PT [address], [place], [address], [facility] 02/13/2024 20:48:20 02/28/2024 text/html Francois returns today now 6.5 months status post right large arthroscopic rotator cuff repair. The patient has been compliant with postoperative restrictions. Continues to participate with physical therapy and has completed home strengthening program. Describes minimal pain, really only with end-range strengthening. Pleased with the outcome from surgical reconstruction.PFMS H and ROS has been reviewed, updated, and signed by me and is located in the patient's chart.On physical examination, well-appearing individual in no acute distress, alert and oriented x 3 with a pleasant affect. Cervical spine range of motion is full at this time without radicular signs or symptoms elicited. Anterior, middle, and posterior deltoid are intact. Portal sites are benign. Passive manipulation of the shoulder reveals no crepitus. Full active work on motion symmetric to contralateral side . No shoulder instability. Supraspinatus strength 4+, infraspinatus strength 4+, subscap and teres at 5/5. There is some early fatigue with repetitive stress testing. No warmth, no redness nor erythema.IMPRESSION : Doing well status post recent arthroscopic rotator cuff repair. Encouraged patient to continue with scapular posture training endrange stretching careful not to overuse the shoulder and not to lift anything repetitive overhead. I think patient has a good understanding of this plan as described return to their normal activities with this understanding they will check back in our office as symptoms dictate going forward. Torres Christianson PA-C [address] [facility] [address] [facility] [address], [place], [address], [facility] 02/28/2024 15:27:39
--- OUTSIDE RECORDS SUMMARY | 2025-05-07 14:22 | XMS_ITS | Encounter Summary ---
Author Organization [facility] Address [address] [place] [address] Care Team Providers Care Duster Tender Name Role Phone Geri Camarillo CPR AMBULANCE DRIVER Primary Care Provider [phone] Encounter Details Date Type Department Care Team ([facility] Contact Info) Description 08/24/2024 Lab Requisition [facility] - Main Lab [address] [facility] [place] [id number] Padilla Mullins MD [address] [place] [address] Benign prostatic hyperplasia with lower urinary tract symptoms Social History Tobacco Use Types Packs/Day Years Used Date Smoking Tobacco: Former Cigarettes Smokeless Tobacco: Never Alcohol Use Standard Drinks/Week Comments Not Currently 0 (1 standard drink = 0.6 oz pur e alcohol) Sex and Gender Information Value Date Recorded Sex Assigned at Not on file Legal Sex Male 2:54 AM EST Gender Identity Not on file Sexual Orientation Not on file documented as of this encounter Plan of Treatment Upcoming Encounters Date Type Department Care Team ([facility] Contact Info) Description 05/31/2025 9:00 AM EST Office Visit [facility] [address] [place], [place] [phone] Geri Camarillo NP [address] [place] [address] documented as of this encounter Procedures Procedure Name Priority Date/Time Associated Diagnosis Comments PROSTATE SPECIFIC ANTIGEN DIAGNOSTIC Routine 08/24/2024 8:59 AM EDT Benign prostatic hyperplasia with lower urinary tract symptoms documented in this encounter Results * Prostate specific antigen diagnostic (08/24/2024 8:59 AM EDT) PSA 2.18 0.00 - 4.00 ng/mL LAB CHEMISTRY METHOD 08/24/2024 1:31 PM EDT [facility] Blood Venous blood specimen / Unknown 08/24/2024 8:59 AM EDT 08/24/2024 12:52 PM EDT Narrative [facility] - 08/24/2024 1:31 PM EDT The Siemens [employer] Chemiluminescent Immunoassay is used. Results obtained with different assay methods or kits cannot be used interchangeably. Results cannot be interpreted as absolute evidence of the presence or absence of malignant disease. us Padilla Mullins MD LAB BLOOD ORDERABLES Fin al Result [facility] [address] [place] [address], documented in this encounter Visit Diagnoses Diagnosis Benign prostatic hyperplasia with lower urinary tract symptoms documented in this encounter Care Teams Duster Tender Relationship Specialty Start Date End Date Geri Camarillo NP [address] [place] [address] PCP - General 06/19/22 documented as of this encounter
== END 2025-05-07 13:23 | disposition home or self-care (01) ==
LOC: HO.HPHYS 12:33
PROVIDERS: Visit Provider Physician Assistant
DX: G56.03 Carpal tunnel syndrome, bilateral upper limbs (principal); M54.2 Cervicalgia; M54.16 Radiculopathy, lumbar region
CPT/HCPCS: 99214